=== PATIENT | male | born 1995 | race Caucasian/White ===

== ENCOUNTER 2022-07-29 16:41 | Emergency (ER) | payer OTHER ==
[~2022-07-29] VITALS: Ht 180.3 cm; Wt 95.5 kg
[2022-07-29] MEDS ORDERED: KETOROLAC 30 MG/ML 1ML VIAL IV ONE ×2 (18:05→19:10)
[2022-07-29] MEDS ORDERED: NS 1,000 ML IV ONE ×2 (18:05→20:00)
[2022-07-29 18:21] LABS: BASO # 0.1 10^3/uL (0.0-0.2); BASO % 0.4 % (0.0-1.0); EOS # 0.1 10^3/uL (0.0-0.5); EOS % 0.4 % (0.0-3.0); HEMATOCRIT 45.1 % (42.0-52.0); HEMOGLOBIN 15.1 g/dl (13.5-17.5); LYMPH # 2.1 10^3/uL (1.5-5.0); LYMPH % 12.3 % (24.0-44.0); MEAN CORPUSCULAR HEMOGLOBIN 28.8 pg (27.0-33.0); MEAN CORPUSCULAR HGB CONC 33.5 g/dl (32.0-36.5); MEAN CORPUSCULAR VOLUME 86.1 fl (80.0-96.0); MONO # 0.7 10^3/uL (0.0-0.8); MONO % 4.2 % (2.0-8.0); NEUTROPHILS # 14.1 10^3/uL (1.5-8.5); NEUTROPHILS % 82.3 % (36.0-66.0); PLATELET COUNT, AUTOMATED 222 10^3/uL (150-450); RED BLOOD COUNT 5.24 10^6/uL (4.30-6.10); WHITE BLOOD COUNT 17.1 10^3/uL (4.0-10.0)
[2022-07-29 18:43] LABS: LIPASE 28 U/L (12-53)
[2022-07-29 18:45] LABS: ALKALINE PHOSPHATASE 91 U/L (46-116); ALT/SGPT 42 U/L (7.0-40); AST/SGOT 25 U/L (<34); BILIRUBIN,DIRECT < 0.1 MG/DL (<0.4); BILIRUBIN,TOTAL 0.2 MG/DL (0.3-1.2); TOTAL PROTEIN 6.6 G/DL (5.7-8.2)
[2022-07-29] MEDS ORDERED: cefTRIAXone SOD 1 GM in D5W MINI-BAG PLUS 50 ML IV ONE (18:50)
[2022-07-29] MEDS ORDERED: TAMSULOSIN 0.4 MG CAP PO ONE (19:20)
[2022-07-29] MEDS ORDERED: MORPHINE 4 MG/ML 1ML VIAL IV ONE ×2 (19:55→21:25)
[2022-07-29] MEDS ORDERED: PERCOCET 5MG/325MG TAB PO ONE (21:25)
[2022-07-29] MEDS ORDERED: PERC5TAB12 PO (22:32)
[2022-07-29] MEDS ORDERED: CIPR500T39 PO (22:32)
[2022-07-29] MEDS ORDERED: FLOM0.4C39 PO (22:32)
[2022-07-29] MEDS ORDERED: KETO10TAB PO (22:32)
[2022-07-29] MEDS ORDERED: OXYCODONE/APAP 5MG/325MG(HOME DOSE PACK) PO ONE (22:35)
[2022-07-29 22:46] VITALS: BP 135/84
== END 2022-07-29 22:53 | disposition home or self-care (01) ==
LOC: M ED 16:41
DX: N10 Acute pyelonephritis (principal); N13.2 Hydronephrosis with renal and ureteral calculous obstruction; E86.0 Dehydration; R11.2 Nausea with vomiting, unspecified; D72.829 Elevated white blood cell count, unspecified; Z90.89 Acquired absence of other organs; F17.200 Nicotine dependence, unspecified, uncomplicated
CPT/HCPCS: 74176; 80047; 80076; 81000; 83690; 85025; 87086; 96361; 96365; 96375; 96376; 99284; J0696; J1885; J2270